=== PATIENT | female | born 1965 | race Hispanic/Latino ===

== ENCOUNTER 2018-09-16 13:03 | Emergency (ER) | payer SELFPAY ==
[2018-09-16] MEDS ORDERED: LIDOCAINE HCL 2% JELLY 5 ML ONE (14:27)
== END 2018-09-16 15:12 | disposition home or self-care (01) ==
LOC: EDH 13:03
DX: K64.5 Perianal venous thrombosis (principal); Z90.710 Acquired absence of both cervix and uterus

== ENCOUNTER 2019-03-24 03:20 | Emergency (ER) | payer OTHER, SELFPAY ==
[2019-03-24 03:43] LABS: APPEARANCE,URINE Clear (CLEAR); BILIRUBIN,URINE Negative (NEGATIVE); COLOR,URINE Yellow (YELLOW); GLUCOSE, URINE (UA) Negative (NEGATIVE); KETONES,URINE Negative (NEGATIVE); LEUKOCYTE ESTERASE ,URINE Trace (NEGATIVE); NITRATE,URINE Negative (NEGATIVE); OCCULT BLOOD,URINE Negative (NEGATIVE); PROTEIN,URINE Negative (NEGATIVE); UROBILINOGEN,URINE 0.2 mg/dL (0.2-1.0)
[2019-03-24 03:45] LABS: HCG,QUAL RESULT NEGATIVE (NEGATIVE)
[2019-03-24 03:53] LABS: BACTERIA,URINE Few /HPF (None Seen); RBC,URINE 0-1 /HPF (0-1)
[2019-03-24] MEDS ORDERED: MORPHINE SULFATE 5 MG/ML VIAL ONE (04:34)
== END 2019-03-24 04:42 | disposition home or self-care (01) ==
LOC: EDH 03:20
DX: N76.0 Acute vaginitis (principal); F41.9 Anxiety disorder, unspecified; Z90.710 Acquired absence of both cervix and uterus
CPT/HCPCS: 81001; 81025; 96372; 99284; J2270